=== PATIENT | female | born 1935 | race Caucasian/White ===

== ENCOUNTER 2019-09-26 05:54 | Day surgery (SDC) | payer MEDICARE ==
[2019-09-26] MEDS ORDERED: Lactated Ringers 1000 ml BAG 1,000 ML IV SCH ×2 (06:00→12:00)
[2019-09-26] MEDS ORDERED: ceFAZolin 2 GM PREMIX in ORs 2 GM/50 ML BAG ONE (06:15)
[2019-09-26] MEDS ORDERED: Rocuronium 50 mg VIAL 10 mg/ml 5 ml VIAL (50 mg) ONE (06:46)
[2019-09-26] MEDS ORDERED: Succinylcholine 200 mg VIAL 20 mg/ml 10 ml VIAL (200 mg) ONE (06:46)
[2019-09-26] MEDS ORDERED: Propofol 10 mg/ml 100 ML BTL 100 ML ONE (06:46)
[2019-09-26] MEDS ORDERED: Lidocaine 2% PF 5 ML VIAL ONE (06:52)
[2019-09-26] MEDS ORDERED: fentaNYL 100 mcg/2 ml 50 MCG/ML VIAL ONE (06:53)
[2019-09-26] MEDS ORDERED: Midazolam 2 mg/2 ml VIAL 1 mg/ml 2 ml VIAL (2 mg) ONE (06:53)
[2019-09-26] MEDS ORDERED: Phenylephrine IV 10 MG/ML 1 ml VIAL ONE (06:54)
[2019-09-26] MEDS ORDERED: Midazolam 5 mg/5 ml VIAL 1 mg/ml 5 ml VIAL (5 mg) ONE (07:20)
[2019-09-26] MEDS ORDERED: ROPIVACAINE 5 MG/ML 30 ML BTL (0.5%) ONE ×2 (07:27→07:28)
[2019-09-26] MEDS ORDERED: Dexmedetomidine 200 mcg/2 ml 2 ml VIAL (200 mcg) ONE (07:28)
[2019-09-26] MEDS ORDERED: Lidocaine 1% MPF 5 ML VIAL ONE (07:28)
[2019-09-26] MEDS ORDERED: Dexamethasone IV 4 MG/ML VIAL 1 ml VIAL ONE (08:10)
[2019-09-26] MEDS ORDERED: fentaNYL 100 mcg/2 ml 50 MCG/ML VIAL IV PRN (08:11)
[2019-09-26] MEDS ORDERED: DiMENhydriNATE IV 50 mg/ml 1 ml VIAL IV PUSH PRN (08:11)
[2019-09-26] MEDS ORDERED: Naloxone 0.4 mg VIAL 0.4 mg/ml 1 ml VIAL IV PRN (08:11)
[2019-09-26] MEDS ORDERED: EPHEDrine (Pressors) 50 MG/ML VIAL ONE ×3 (08:19→08:27)
[2019-09-26] MEDS ORDERED: Vancomycin(*) 1,000 MG VIAL ONE (08:19)
[2019-09-26] MEDS ORDERED: Sugammadex 500 MG/5 ML 5 ml VIAL IV PUSH ONE ×2 (10:12→10:24)
[2019-09-26] MEDS ORDERED: Ondansetron 4 mg VIAL 2 MG/ML 2 ml VIAL ONE (10:12)
[2019-09-26] MEDS ORDERED: Ondansetron ODT 4 mg TAB 4 MG TAB PO PRN (11:40)
[2019-09-26] MEDS ORDERED: Morphine 2 MG/ML SYRINGE IV PRN (11:40)
[2019-09-26] MEDS ORDERED: Ondansetron 4 mg VIAL 2 MG/ML 2 ml VIAL IV PRN (11:40)
[2019-09-26] MEDS ORDERED: diPHENhydraMINE IV 50 MG/ML 1 ml VIAL (BENADRYL) IV PRN (11:40)
[2019-09-26] MEDS ORDERED: diPHENhydraMINE 25 mg TAB PO PRN (11:40)
[2019-09-26] MEDS ORDERED: Lactulose 30 ml UDC PO PRN (11:40)
[2019-09-26] MEDS ORDERED: Magnesium Hydroxide LIQ 30 ML UDC PO PRN (11:40)
[2019-09-26] MEDS ORDERED: oxyCODONE/Acetamin 5/325 mg TAB PO PRN ×2 (11:40)
[2019-09-26] MEDS ORDERED: Polyethylene Glycol 3350 17 GM PACKET PO PRN (11:50)
[2019-09-26] MEDS: ceFAZolin 1 GM ADVAN(*) 1 GM in NS 0.9% 50 ML 50 ML IVPB SCH (16:03)
[2019-09-27] MEDS: ceFAZolin 1 GM ADVAN(*) 1 GM in NS 0.9% 50 ML 50 ML IVPB SCH ×2 (00:26→08:47)
[2019-09-27 05:24] LABS: Hematocrit 37 % (35-47); Hemoglobin 12.4 g/dL (12.0-16.0); Mean Platelet Volume 8.4 fL (7.4-10.4); Platelet Count 221 10^3/uL (150-450)
[2019-09-27 05:42] LABS: BUN/Creatinine Ratio 19.4 (8-20); Calcium 9.3 mg/dL (8.6-10.3); EGFR African American 34.8 (>60); EGFR Non-African American 28.8 (>60); Potassium 4.4 mmol/L (3.5-5.0)
[2019-09-27] MEDS ORDERED: Vitamin THERAPEUTIC TAB PO SCH (09:00)
[2019-09-27] MEDS ORDERED: Aspirin EC 81 mg TAB.EC (enteric coated) PO SCH (09:00)
[2019-09-27 11:40] VITALS: BP 106/48
== END 2019-09-27 14:30 | disposition home or self-care (01) | DRG 483 ==
LOC: OR 05:54 → SSU 13:13
PROVIDERS: ADMIT Orthopaedic Surgery; ATTEND Orthopaedic Surgery